=== PATIENT | female | born 1955 | race Caucasian/White ===

== ENCOUNTER 2023-08-12 05:42 | Inpatient (IN) ==
--- NOTE | 2023-07-29 11:26 | Anesthesiology Consultation ---
Date of Service July 29, 2023 Assessment & Plan (1) Encounter for pre-operative examination: Chart Review Chart Review: Acceptable Risk for Surgery (pending PCP clearance 08/08/23) and Patient NOT seen in Pre Admission Testing - Awaiting PCP clearance 08/08/23 (Meredith Nolasco) -Infectious Disease screening: Per PAT nursing assessment on 07/29/23. Patient with nasal congestion/runny nose since 07/21/23. Staying stable. Using Afrin PRN. Will be following up with PCP on 08/08/23. No known infectious disease contacts in past 10 days. No recent travel outside the country. Will be 22 days from symptom onset by DOS on 08/12/23- no additional preop Covid testing or precautions needed pending symptoms resolve by DOS. Will await PCP clearance appt History Surgery Operation Date: 08/12/23 12:25 Proposed Procedures p C5-C6 Anterior Cervical Discectomy Fusion, Spinal Cord Monitoring - John Klein DO Height/Weight Height: 5 ft 7 in Weight: 126.099 kg Allergies Allergy/AdvReac Type Severity Reaction Status Date / Time nickel Allergy Severe red rash Verified 07/29/23 09:44 and itching adhesive Allergy Intermediate REDNESS Verified 07/29/23 09:44 aspartame Allergy Intermediate MIGRAINES, Verified 07/29/23 09:44 G I UPSET Medications Home Medications Medication Instructions Recorded Confirmed Last Taken cetirizine 10 mg tablet 10 mg PO HS 07/29/23 07/29/23 Unknown cholecalciferol (vitamin D3) 125 125 mcg PO QAM 07/29/23 07/29/23 Unknown mcg (5,000 unit) tablet (Vitamin D3) docusate sodium 100 mg capsule 100 mg PO QAM 07/29/23 07/29/23 Unknown (Colace) etodolac 400 mg tablet 400 mg PO BID 07/29/23 07/29/23 Unknown hydrocodone 10 mg-acetaminophen 0.5 tab PO BID 07/29/23 07/29/23 Unknown 325 mg tablet lisinopril 20 1 tab PO QAM 07/29/23 07/29/23 Unknown mg-hydrochlorothiazide 12.5 mg tablet oxymetazoline 0.05 % nasal mist 2 spray intranasal Q12H PRN Nasal 07/29/23 07/29/23 Unknown (Afrin (oxymetazoline)) Congestion Past Medical History Medical History Chronic back pain follows with Pain Management in [place] Hoarseness of voice since 1996 after cervical fusion Hx of renal calculi Hypertension Nausea and vomiting after administration of anesthetic agent Seasonal allergies Unilateral vocal cord paralysis since her last cervical surgery in - experiences sob at times randomly. Past Family History Family History Other No family history of adverse response to anesthesia Past Surgical History Surgical History H/O shoulder replacement Right and Left History of bilateral tubal ligation History of breast biopsy left breast (benign) History of carpal tunnel release right History of colonoscopy History of cystoscopy x2 with kidney stone removal History of lumbar surgery (~2014) History of right hip replacement History of total right knee replacement S/P cervical spinal fusion C6-C7 with bone graft (from hip) Social History Smoking Status: Never smoker Do You Dip or Chew Tobacco: No Hx Alcohol Use: No Hx Substance Use: No substance use type: does not use Lab Results Anesthesia Preop Results Results Anesthesia Widget: WBC 5.65 K/ul (4.8-10.8) 07/25/23 Hgb 13.0 g/dl (12.0-16.0) 07/25/23 Hct 39.1 % (37.0-47.0) 07/25/23 Plt 236 K/uL (130-400) 07/25/23 Na 140 mmol/L (136-145) 07/25/23 K 4.6 mmol/L (3.5-5.1) 07/25/23 Cl 103 mmol/L (98-107) 07/25/23 CO2 31 mmol/L (21-32) 07/25/23 BUN 32 mg/dl (6-23) H 07/25/23 Creat 1.27 mg/dl (0.6-1.2) H 07/25/23 Fasting Glucose 162 mg/dl (70-99) H 07/25/23 PT 10.7 Seconds (9.0-12.0) 07/25/23 PTT 25 Seconds (21-31) 07/25/23 INR 1.0 (0.9-1.1) 07/25/23 Urine Color Yellow 07/25/23 Urine Appearance Clear (Clear) 07/25/23 Urine pH 5.0 (4.5-7.5) 07/25/23 Urine Specific [place] 1.022 (1.000-1.030) 07/25/23 Urine Protein Negative (Negative) 07/25/23 Urine Glucose (UA) Negative (Negative) 07/25/23 Urine Ketones Negative (Negative) 07/25/23 Urine Blood Negative (Negative) 07/25/23 Urine Nitrite Negative (Negative) 07/25/23 Urine Bilirubin Negative (Negative) 07/25/23 Urine Urobilinogen Negative (Negative) 07/25/23 Urine Leukocyte Esterase Negative (Negative) 07/25/23 Blood Type O Negative 07/25/23 Antibody Screen NEGATIVE 07/25/23 Testing Electrocardiogram Date: 07/25/23 Findings: + NSR @ (78bpm) and + no change from (Jan 23, 2014 per cardio ) Nonspecific ST abnormality Chest X-Ray Date: 07/25/23 Findings: + NAD FINDINGS: No pneumothorax. No pleural effusions. The heart is normal in size. No focal lung consolidations to suggest a pneumonia. No evidence for pulmonary edema. There are bilateral total shoulder arthroplasties. Metallic density overlying the cervical spine may represent a necklace or hair clip. There are bilateral total shoulder arthroplasties. No acute fractures identified.
[2023-08-12] MEDS: ACETAMINOPHEN 500 MG TAB PO SCH (06:21)
[2023-08-12] MEDS: CeleBREX 200 MG CAP PO SCH (06:21)
[2023-08-12] MEDS: GABAPENTIN 300 MG CAP PO SCH (06:21)
[2023-08-12] MEDS: LR 60ML/HR IV SCH (06:22)
[2023-08-12] MEDS: LR 15ML/HR IV SCH (06:22)
[2023-08-12] MEDS ORDERED: PROMETHAZINE HCL 6.25 MG in SODIUM CHLORIDE 0.9% 50 ML IV PRN (06:43)
[2023-08-12] MEDS ORDERED: ONDANSETRON INJ 2 MG/ML 2 ML VIAL IV PRN ×2 (06:43→11:11)
[2023-08-12] MEDS ORDERED: ATROPINE SULFATE 0.1 MG/ML 10ML SYR IV PRN (06:43)
[2023-08-12] MEDS ORDERED: ePHEDrine sulfate 50 MG/ML AMP IV PRN (06:43)
[2023-08-12] MEDS ORDERED: ONDANSETRON INJ 2 MG/ML 2 ML VIAL ONE (07:02)
[2023-08-12] MEDS ORDERED: fentaNYL citrate PF 100 MCG/2 ML VIAL ONE (07:02)
[2023-08-12] MEDS ORDERED: MIDAZOLAM HCL 1 MG/ML 2ML VIAL ONE (07:02)
[2023-08-12] MEDS ORDERED: PROPOFOL IV EMULSION 10 MG/ML 20 ML VIAL IV ONE (07:02)
[2023-08-12] MEDS ORDERED: ROCURONIUM BROMIDE 10 MG/ML 5 ML VIAL IV ONE ×2 (07:02→08:28)
[2023-08-12] MEDS ORDERED: SUCCINYLCHOLINE 100MG/5ML SYR IV ONE (07:02)
[2023-08-12] MEDS ORDERED: SUGAMMADEX SODIUM 200 MG/2 ML VIAL IV ONE (07:03)
[2023-08-12] MEDS ORDERED: LIDOCAINE 2% 2 ML VIAL/AMP(20MG/ML) INFIL ONE (07:10)
[2023-08-12] MEDS ORDERED: ACETAMINOPHEN 1000 MG/100 ML IV IV ONE (07:11)
[2023-08-12] MEDS ORDERED: PROPOFOL IV EMULSION 10 MG/ML 100 ML VIAL IV ONE (07:12)
[2023-08-12] MEDS: SCOPOLAMINE 1 MG TDSY TD ONE ×2 (07:16)
--- NOTE | 2023-08-12 07:34 | History & Physical Bridge Note ---
Date of Service August 12, 2023 History & Physical Bridge Note I have examined the patient, reviewed the History & Physical and in the interval since the performance of the History & Physical I have noted the following changes of clinical significance: no changes noted
--- NOTE | 2023-08-12 07:35 | History & Physical Report ---
Date of Service August 12, 2023 Assessment & Plan (1) Herniation of cervical intervertebral disc with radiculopathy: Plan: Anterior cervical discectomy and fusion C5-C6 History of Present Illness Chief Complaint: Neck and arm pain Primary Care Provider: LATOYA Keyes This is a 68-year-old female who presents with chronic cyst on neck and arm pain after failing course of nonoperative care is here for surgical invention. Allergies Allergy/AdvReac Type Severity Reaction Status Date / Time nickel Allergy Severe red rash Verified 08/12/23 06:04 and itching adhesive Allergy Intermediate REDNESS Verified 08/12/23 06:04 aspartame Allergy Intermediate MIGRAINES, Verified 08/12/23 06:04 G I UPSET Home Medications Medication Instructions Recorded Confirmed Type cetirizine 10 mg tablet 10 mg PO HS 07/29/23 08/12/23 History cholecalciferol (vitamin D3) 125 125 mcg PO QAM 07/29/23 08/12/23 History mcg (5,000 unit) tablet (Vitamin D3) docusate sodium 100 mg capsule 100 mg PO QAM 07/29/23 08/12/23 History (Colace) etodolac 400 mg tablet 400 mg PO BID 07/29/23 08/12/23 History hydrocodone 10 mg-acetaminophen 0.5 tab PO BID 07/29/23 08/12/23 History 325 mg tablet lisinopril 20 1 tab PO QAM 07/29/23 08/12/23 History mg-hydrochlorothiazide 12.5 mg tablet oxymetazoline 0.05 % nasal mist 2 spray intranasal Q12H PRN Nasal 07/29/23 08/12/23 History (Afrin (oxymetazoline)) Congestion Past Med/Surg History Medical History Chronic back pain follows with Pain Management in [place] Hoarseness of voice since 1996 after cervical fusion Hx of renal calculi Hypertension Nausea and vomiting after administration of anesthetic agent Seasonal allergies Unilateral vocal cord paralysis since her last cervical surgery in - experiences sob at times randomly. Surgical History H/O shoulder replacement Right and Left History of bilateral tubal ligation History of breast biopsy left breast (benign) History of carpal tunnel release right History of colonoscopy History of cystoscopy x2 with kidney stone removal History of lumbar surgery (~2014) History of right hip replacement History of total right knee replacement S/P cervical spinal fusion C6-C7 with bone graft (from hip) Family History Other No family history of adverse response to anesthesia Social History Smoking Status: Never smoker Second Hand Exposure: No; Do You Dip or Chew Tobacco: No; Tobacco Cessation Education Requested by Patient: No Hx Alcohol Use: No Hx Substance Use: No Preferred Language: Korean Communication Ability: Effective Channel Partners Required: No Beliefs That Will Affect Care: None Current Living Situation: Spouse Other Information That Helps Us Care for You: No Feels Safe at Home: Yes Safety Concerns: Feels Safe At This Time Assistive Devices: None Physical Exam Physical Exam: Patient is alert and oriented Heart regular in rhythm Lungs clear Results & Data Results & Data Vital Signs (Past 12 Hours) Vital Signs Temp Pulse Resp BP Pulse Ox O2 Del Method 08/12/23 06:09 36.6 C 72 20 108/91 93 Room Air
[2023-08-12] MEDS: ceFAZolin 330 MG/ML 1 GM VIAL ONE (08:30)
[2023-08-12] MEDS: ceFAZolin 3000MG 3,000 MG/72.5 ML BAG IV SCH (08:30)
[2023-08-12] MEDS: FLOSEAL HEMOSTATIC MATRIX 10ML TOP ONE (08:31)
--- NOTE | 2023-08-12 09:24 | Operative Report ---
Post Operative Report Pre & Post Diagnosis Operation Date: 08/12/23 07:45 Pre-Op Diagnosis: Cervical spinal stenosis with radiculopathy Morbid obesity Post-Op Diagnosis: Same I identified the patient and participated in the time-out.: Yes Procedure Operation Date: 08/12/23 07:45 Actual Procedures #1 anterior cervical discectomy with bilateral foraminotomies C5-C6. #2 anterior cervical arthrodesis C5-C6. #3 placement of coalition 8 mm interbody construct with I factor. Surgeon John Klein, Toolroom Clerk Latha Chaves Estimated Blood Loss 10 Findings See Below The patient is 5 foot 7 weighing over 127 kg with a BMI in excess of 44. Patient's body was to contribute to significant technical difficulty with positioning exposure and the procedure itself at least 50% increased operative time. Specimens None Indications 68-year-old female who presents with cervical radiculopathy. Obtain extensive course of nonoperative care is here for surgical invention. Description of Procedure Patient was met with identified informed consent obtained. 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 All bony promises well- padded eyes inspected to ensure no external precipice monitor at this point the anterior cervical spine was prepped and draped in a sterile fashion. The assistance of fluoroscopy identified the C5-C6 disc base and a transverse inci doe was placed on the right anterior aspect the cervical spine overlying the region. Blunt dissection with assistance of bipolar cautery to form down to and exposing the anterior cervical spine at C5-C6. Self-retaining retractors placed. Informed complete discectomy out to the uncovertebral joints bilaterally. [place] distracting pins utilized to assist in visualization. Removed all posterior annular fibers longitudinal ligament bilateral foraminotomies were performed. Endplates were to subcortical bleeding bone and a 8 mm coalition cage filled with I factor tapped in position and screwed into place with fluoroscopic visualization. The incision was then copiously irrigated explored to ensure no damage to surrounding structures remaining bleeding. 10 round DONITA drain inserted. The incision was then closed with 2 Vicryl in the fascia and 4 Monocryl for final closure. Steri-Strips sterile dressings placed. Patient waken taken to PACU in stable condition. Please note spinal cord monitoring visualized at the procedure no changes noted. Lastly Latha Chaves is present at the entire surgery Patient positioning complex portion of the surgery and possible closure I attest to the content of the Intraoperative Record and any orders documented therein. Any exceptions are noted below.
--- NOTE | 2023-08-12 09:43 | Fluoroscopy Report ---
FL cervical 2-3V CLINICAL HISTORY: ACDF C5-C6 COMPARISON STUDY: None. FLUOROSCOPY TIME: 21 seconds FLUOROSCOPY IMAGES: 2 Ka,r: 6.3 mGy FINDINGS: Anterior cervical discectomy and fusion at lower cervical spine. The exact level is difficu lt to identify on the spot images but is likely at the C5-C6 level. The hardware appears intact. Part ially visualized endotracheal tube. IMPRESSION: Fluoroscopic assistance as above. ACT 112: Negative or not required by law. Electronically signed by: Jc Abraham M.D. 08/12/2023 9:42 AM
[2023-08-12] MEDS: fentaNYL citrate PF 100 MCG/2 ML VIAL IV PRN (09:45)
[2023-08-12] MEDS: HYDROmorphone INJ 1 MG/ML SYRINGE IV PRN (10:15)
[2023-08-12] MEDS ORDERED: traMADol HCL 50 MG TABLET PO PRN (11:11)
[2023-08-12] MEDS ORDERED: ACETAMINOPHEN 1,000 MG/100 ML VIAL IV PRN (11:11)
[2023-08-12] MEDS ORDERED: DO NOT ADMINISTER PNEUMOCOCCAL VACCINE PRN (11:11)
[2023-08-12] MEDS ORDERED: diphenhydrAMINE Capsule 25 MG CAP PO PRN (11:11)
[2023-08-12] MEDS ORDERED: PROMETHAZINE HCL 12.5 MG in SODIUM CHLORIDE 0.9% 50 ML IV PRN (11:11)
[2023-08-12] MEDS ORDERED: NALOXONE HCL 0.4 MG/1 ML VIAL/CARP IV PRN (11:11)
[2023-08-12] MEDS ORDERED: LORazepam 0.5 MG in SYRINGE 0.25 ML IV PRN (11:11)
[2023-08-12] MEDS ORDERED: RACEPINEPHRINE 2.25% NEBU SOLN 0.5 ML VIAL INH PRN (11:11)
[2023-08-12] MEDS ORDERED: ONDANSETRON 4 MG OD TAB PO PRN (11:11)
[2023-08-12] MEDS ORDERED: HYDROmorphone INJ 1 MG/ML SYRINGE IV PRN (11:11)
[2023-08-12] MEDS ORDERED: hydrOXYzine HCl 25 MG TAB PO PRN (11:11)
[2023-08-12] MEDS ORDERED: MAGNESIUM HYDROXIDE SUSP 30 ML UDC PO PRN (11:11)
[2023-08-12] MEDS ORDERED: SOD PHOSPHATE/SOD BIPHOSPHATE ENEMA 132 ML BTL PR PRN (11:11)
[2023-08-12] MEDS ORDERED: ACETAMINOPHEN 500 MG TAB PO PRN (11:11)
[2023-08-12] MEDS ORDERED: HYDROmorphone INJ 0.5 MG/0.5 ML SYR IV PRN (11:11)
[2023-08-12] MEDS ORDERED: DO NOT ADMINISTER FLU VACCINE PRN (11:11)
[2023-08-12] MEDS ORDERED: LORazepam 0.5 MG TAB PO PRN (11:11)
[2023-08-12] MEDS ORDERED: bisacodyL 10 MG SUPP PR PRN (11:11)
[2023-08-12] MEDS ORDERED: METOCLOPRAMIDE HCL INJ 5 MG/ML 2 ML VIAL IV PRN (11:11)
[2023-08-12] MEDS ORDERED: FAMOTIDINE 20 MG TAB PO PRN (11:11)
[2023-08-12] MEDS ORDERED: dexAMETHasone 8 MG in SYRINGE 0 ML IV PRN (11:11)
[2023-08-12] MEDS ORDERED: ALUMINUM/MAGNESIUM SUSP 30 ML UDC PO PRN (11:11)
[2023-08-12] MEDS ORDERED: OXYMETAZOLINE 0.05% 30 ML BTL PRN (11:22)
[2023-08-12] MEDS: LACTATED RINGER'S 1,000 ML IV SCH (11:41)
--- NOTE | 2023-08-12 12:11 | Hospitalist Consultation ---
Date of Consultation August 12, 2023 Assessment & Plan (1) Herniation of cervical intervertebral disc with radiculopathy: This is a 68 y/o female with cervical stenosis, hypertension, seasonal allergies, vocal cord paralysis from prior ACDF, and other history as outlined who underwent C5-C6 ACDF today by Dr. Klein. We have been consulted for post- operative medical management. Currently, pt has no specific complaints and BP is stable. - Pain control, activity, DVT prophylaxis per primary service - Encourage OOB as tolerated, incentive spirometry - Labs in the AM - EBL 10 ml per op note (2) Hypertension: Chronic, stable Continue outpatient meds (3) Seasonal allergies: Chronic, stable Continue outpatient regimen (4) Unilateral vocal cord paralysis: Chronic, appears stable Plan Pt seen and reviewed with collaborating physician, Dr. Berry. Plan of care discussed and as outlined above. Thank you for this consultation. We will continue to follow the patient with you. A member of the [facility] Hospitalist team is available 26/11 via [employer]. Please don't hesitate to reach out with questions. Saundra Pina PA-C Supervising Physician Co-Signing Physician Notes Patient was seen and examined independently at bedside. Chart reviewed. Case discussed with Sherri Pina PA-C and agree with the documentation above. In summary, this is a 68 year old female with cervical stenosis with radiculopathy who underwent ACDF by Dr Klein today. Post operatively patient has remained stable. DVT ppx, pain management, activities, and disposition per primary team. Chronic medical conditions stable. On exam- General: Lying comfortably in bed, not in distress Chest: Clear breath sounds bilaterally, no wheezes or crackles CVS: Regular rate and rhythm, normal heart sounds, no murmur Abdomen: Soft, non tender, not distended, normal bowel sounds Neuro: Awake, alert, oriented, non focal Extremities: No edema Incision site with surgical dressing and DONITA drain Rest as per the note above. History of Present Illness Reason for Consultation: Post-op medical management Requesting Physician: Dr. John Klein Attending Physician: oJhn Klein, DO History of Present Illness This is a 68 y/o female with cervical stenosis, hypertension, seasonal allergies, vocal cord paralysis from prior ACDF, and other history as outlined who underwent C5-C6 ACDF today by Dr. Klein. Prior to surgery, she reports neck pain with numbness, tingling, and weakness in her right arm. Currently, she reports feeling well without significant neck pain. She is using her right hand and arm without difficulty. Reports that the numbness and tingling are improved post-operatively. She had vocal cord paralysis after prior ACDF with partial recovery of vocal function. No vocal concerns at present after this procedure. She is tolerating clear liquids without difficulty. Denies dysphagia, chest p ain, palpitations, dyspnea, N/V. Allergies Allergy/AdvReac Type Severity Reaction Status Date / Time nickel Allergy Severe red rash Verified 08/12/23 06:04 and itching adhesive Allergy Intermediate REDNESS Verified 08/12/23 06:04 aspartame Allergy Intermediate MIGRAINES, Verified 08/12/23 06:04 G I UPSET Home Medications Medication Instructions Recorded Confirmed Type cetirizine 10 mg tablet 10 mg PO HS 07/29/23 08/12/23 History cholecalciferol (vitamin D3) 125 125 mcg PO QAM 07/29/23 08/12/23 History mcg (5,000 unit) tablet (Vitamin D3) docusate sodium 100 mg capsule 100 mg PO QAM 07/29/23 08/12/23 History (Colace) etodolac 400 mg tablet 400 mg PO BID 07/29/23 08/12/23 History hydrocodone 10 mg-acetaminophen 0.5 tab PO BID 07/29/23 08/12/23 History 325 mg tablet lisinopril 20 1 tab PO QAM 07/29/23 08/12/23 History mg-hydrochlorothiazide 12.5 mg tablet oxymetazoline 0.05 % nasal mist 2 spray intranasal Q12H PRN Nasal 07/29/23 08/12/23 History (Afrin (oxymetazoline)) Congestion Patient History Medical History (Updated 08/12/23 @ 12:54 by Nicole Pina PA-C) Unilateral vocal cord paralysis since her last cervical surgery in - experiences sob at times randomly. Seasonal allergies Hypertension Nausea and vomiting after administration of anesthetic agent Hoarseness of voice since 1996 after cervical fusion Chronic back pain follows with Pain Management in [place] Hx of renal calculi Surgical History History of colonoscopy History of carpal tunnel release right H/O shoulder replacement Right and Left History of right hip replacement History of total right knee replacement History of lumbar surgery (~2014) S/P cervical spinal fusion C6-C7 with bone graft (from hip) History of breast biopsy left breast (benign) History of bilateral tubal ligation History of cystoscopy x2 with kidney stone removal Family History Other No family history of adverse response to anesthesia Social History Smoking Status: Never smoker Second Hand Exposure: No; Do You Dip or Chew Tobacco: No; Tobacco Cessation Education Requested by Patient: No Hx Alcohol Use: No Hx Substance Use: No Preferred Language: Swedish Communication Ability: Effective Knowledge Management Consultant Required: No Beliefs That Will Affect Care: None Current Living Situation: Spouse Other Information That Helps Us Care for You: No Feels Safe at Home: Yes Safety Concerns: Feels Safe At This Time Assistive Devices: None Review of Systems Review of Systems: All systems reviewed & are unremarkable except as noted in HPI & below Constitutional: no fever and no chills Eyes: no diplopia Ear, Nose, Mouth, Throat: no sore throat and no dysphagia Respiratory: no cough and no dyspnea Cardiovascular: no chest pain and no palpitations Gastrointestinal: no abdominal pain, no nausea and no vomiting Genitourinary: no dysuria Musculoskeletal: as per Subjective / HPI Integumentary: no rash Neurologic: as per Subjective / HPI Physical Exam Physical Exam: General: awake, alert, NAD HEENT: no scleral icterus, moist oral mucosa Neck: cervical collar in place, drain in place with scant sanguinous drainage Heart: RRR Lungs: CTA bilaterally Abdomen: soft, NT, +BS 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 and equal bilaterally, distal pulses intact and equal Skin: warm, dry, no jaundice Neurologic: moving all extremities, no focal deficits, no confusion, no dysarthria Results & Data Results & Data Vital Signs (Past 12 Hours) Vital Signs Temp Pulse Pulse Resp BP Pulse Ox O2 Del Method 08/12/23 11:43 36.7 C 81 18 144/75 H 97 Nasal Cannula 08/12/23 11:35 80 18 95 Nasal Cannula 08/12/23 11:11 Nasal Cannula 08/12/23 11:11 36.3 C L 82 18 110/65 96 Nasal Cannula 08/12/23 10:55 84 16 150/70 H 97 Nasal Cannula 08/12/23 10:45 86 18 127/79 95 Nasal Cannula 08/12/23 10:35 36.5 C 72 20 142/69 H 94 Nasal Cannula 08/12/23 10:25 70 18 141/81 H 95 Nasal Cannula 08/12/23 10:15 68 16 128/73 94 Oxymask 08/12/23 10:05 86 18 136/76 95 Oxymask 08/12/23 09:55 87 24 141/81 H 97 Oxymask 08/12/23 09:45 89 20 141/78 H 95 Oxymask 08/12/23 09:35 36.5 C 95 H 12 159/80 H 93 Oxymask 08/12/23 06:09 36.6 C 72 20 108/91 93 Room Air O2 Flow Rate 08/12/23 11:43 3 08/12/23 11:35 2 08/12/23 11:11 3 08/12/23 11:11 3 08/12/23 10:55 3 08/12/23 10:45 3 08/12/23 10:35 3 08/12/23 10:25 3 08/12/23 10:15 4 08/12/23 10:05 4 08/12/23 09:55 4 08/12/23 09:45 4 08/12/23 09:35 6 08/12/23 06:09 (2) Hypertension Hypertension type: unspecified Qualified Code(s): I10 - Essential (primary) hypertension
--- NOTE | 2023-08-12 13:06 | Anesthesiology Progress Note ---
Date of Service August 12, 2023 Anesthesia Post Procedure Vital Signs Vital Signs: Temp Pulse Pulse Resp BP Pulse Ox O2 Del Method 08/12/23 12:11 82 16 106/61 97 Nasal Cannula 08/12/23 11:43 36.7 C 81 18 144/75 H 97 Nasal Cannula 08/12/23 11:35 80 18 95 Nasal Cannula 08/12/23 11:11 Nasal Cannula 08/12/23 11:11 36.3 C L 82 18 110/65 96 Nasal Cannula 08/12/23 10:55 84 16 150/70 H 97 Nasal Cannula 08/12/23 10:45 86 18 127/79 95 Nasal Cannula 08/12/23 10:35 36.5 C 72 20 142/69 H 94 Nasal Cannula 08/12/23 10:25 70 18 141/81 H 95 Nasal Cannula 08/12/23 10:15 68 16 128/73 94 Oxymask 08/12/23 10:05 86 18 136/76 95 Oxymask 08/12/23 09:55 87 24 141/81 H 97 Oxymask 08/12/23 09:45 89 20 141/78 H 95 Oxymask 08/12/23 09:35 36.5 C 95 H 12 159/80 H 93 Oxymask 08/12/23 06:09 36.6 C 72 20 108/91 93 Room Air O2 Flow Rate 08/12/23 12:11 3 08/12/23 11:43 3 08/12/23 11:35 2 08/12/23 11:11 3 08/12/23 11:11 3 08/12/23 10:55 3 08/12/23 10:45 3 08/12/23 10:35 3 08/12/23 10:25 3 08/12/23 10:15 4 08/12/23 10:05 4 08/12/23 09:55 4 08/12/23 09:45 4 08/12/23 09:35 6 08/12/23 06:09 Pain Intensity Neck: Pain Intensity: 1 Transfer of Care Handoff Completed per policy Notes Mental Status: alert / awake / arousable Patient Amnestic to Procedure: Yes Nausea / Vomiting: adequately controlled Pain: adequately controlled Airway Patency, RR, SpO2: stable & adequate BP & HR: stable & adequate Hydration State: stable & adequate Anesthetic Complications: no major complications apparent and Pt Satisfied with anesthetic care
[2023-08-12] MEDS: oxyCODONE HCL IR 5 MG TAB (IMMEDIATE RELEASE) PO PRN (14:53)
[2023-08-12] MEDS: CHECK SCOPOLAMINE PATCH PLACEMENT SCH ×2 (15:42→15:43)
[2023-08-12] MEDS: ceFAZolin 2000MG 2,000 MG/15 ML SYR IV SCH (15:43)
[2023-08-12] MEDS: CETIRIZINE HCL 10 MG TABLET PO SCH (20:04)
[2023-08-12] MEDS: DOCUSATE SODIUM/SENNA 50/8.6MG TAB PO SCH (20:05)
[2023-08-13] MEDS: POLYETHYLENE (MIRALAX) 17 GM PACK PO SCH (04:54)
[2023-08-13 06:15] LABS: Basophils # (auto) 0.02 K/uL (0.00-0.20); Basophils % (auto) 0.2 %; Eosinophils # (auto) 0.06 K/uL (0.00-0.50); Eosinophils % (auto) 0.7 %; Hematocrit (blood only) 35.2 % (37.0-47.0); Hemoglobin 11.5 g/dl (12.0-16.0); Immature Granulocytes # (auto) 0.03 K/uL (0.01-0.20); Immature Granulocytes % (auto) 0.4 %; Lymphocytes # (auto) 1.47 K/uL (1.20-3.40); Lymphocytes % (auto) 17.5 %; Mean Corpuscular Hemoglobin 31.9 pg (25.0-34.0); Mean Corpuscular Hgb Conc 32.7 g/dL (32.0-36.0); Mean Corpuscular Volume 97.5 fL (80.0-100.0); Mean Platelet Volume 9.6 fL (9.4-12.4); Monocytes # (auto) 0.68 K/uL (0.11-0.59); Monocytes % (auto) 8.1 %; Neutrophils # (auto) 6.12 K/uL (1.40-6.50); Neutrophils % (auto) 73.1 %; Platelet Count 216 K/uL (130-400); RDW Coefficient of Variation 12.6 % (11.5-14.5); RDW Standard Deviation 45.1 fL (36.4-46.3); Red Blood Count 3.61 M/uL (4.20-5.40); White Blood Count 8.38 K/ul (4.8-10.8)
[2023-08-13 06:32] LABS: Anion Gap 6 (3-11); BUN Creatinine Ratio 22.6 (10-20); Blood Urea Nitrogen 24 mg/dl (6-23); Calcium 8.5 mg/dl (8.6-10.3); Carbon Dioxide 28 mmol/L (21-32); Chloride 101 mmol/L (98-107); Creatinine Clr Calc Pharmacy 69.6 ml/min; Est GFR (Non-African American) 53.5 ml/min; Glucose 118 mg/dl (70-99(Fasting)); Sodium 135 mmol/L (136-145)
[2023-08-13] MEDS: dexAMETHasone 6 MG in SYRINGE 0 ML IV SCH (08:25)
[2023-08-13] MEDS: LISINOPRIL/HCTZ 20/12.5MG 1 TAB TAB PO SCH (08:25)
[2023-08-13] MEDS: CHOLECALCIFEROL 125 MCG (5,000 UNITS) TAB PO SCH (08:25)
[2023-08-13] MEDS: DOCUSATE SODIUM 100 MG CAP PO SCH (08:25)
--- NOTE | 2023-08-13 09:38 | Discharge Summary ---
Date of Service August 13, 2023 Admission HPI Per Admitting Provider This is a 68-year-old female who presents with chronic cyst on neck and arm pain after failing course of nonoperative care is here for surgical invention. Principal Diagnosis Cervical discrimination with radiculopathy Discharge Data Allergies Allergy/AdvReac Type Severity Reaction Status Date / Time nickel Allergy Severe red rash Verified 08/12/23 06:04 and itching adhesive Allergy Intermediate REDNESS Verified 08/12/23 06:04 aspartame Allergy Intermediate MIGRAINES, Verified 08/12/23 06:04 G I UPSET Consultations 08/12/23 11:11 Consult Hospitalist Routine Procedures Performed Operation Date: 08/12/23 07:45 Actual Procedures p C5-C6 Anterior Cervical Discectomy Fusion, Spinal Cord Monitoring(Not Applicab le) - John Klein DO Ordered Studies 08/12/23 07:45 FL cervical 2-3V Routine Hospital Course (1) Herniation of cervical intervertebral disc with radiculopathy: Patient underwent anterior cervical discectomy and fusion tolerated as well as taken orthopedic for postoperative. Postop day #1 she was swallowing well. Pain markedly improved. DONITA drain decreasing appropriate. Extra strength testing. Simply discharged home. Discharge orders instructions from chart for further review. Total Time Total Time Spent Total Time Spent (In Minutes): 20 minutes Discharge Plan Discharge Items Patient Disposition: Home - Self-Care Reason For Visit: Cervical Spine Pain, Cervical Myelopathy Discharge Diagnosis: Cervical spinal stenosis with radiculopathy Activity: As commented below Non-emergency contact: Primary Care Provider Call non-emergency contact if: you have any medication questions Follow-up/Referrals: Meredith Oneill CRNP [Primary Care Provider] - Diet: Regular Addtl Attending Provider Instructions: ACTIVITY RECOMMENDATIONS: SELF CARE INSTRUCTIONS AFTER CERVICAL FUSIONS 1. No smoking. Smoking drastically decreases the chance of a solid fusion. 2. No bending, lifting more than 5 pounds, or twisting (roll like a log when turning in bed). 3. You may shower 3 days after surgery. Thoroughly dry wound. Do not soak in the tub. 4. Cervical collar: Must be worn at all times including sleeping. You may remove the brace only to bath, eat and if you are sitting in a recliner. 5. Please walk as much as you can for exercise. Gradually increase the distance that you walk as your endurance increases. SPECIAL CARE INSTRUCTIONS: VERY IMPORTANT TO READ AND REVIEW A. Do not take any anti-inflammatory medications (i.e. Indocin, Advil, Aspirin, Naprosyn, Aleve, Motrin, etc.) as these may inhibit the chance of a solid fusion. Tylenol is okay to take. B. Your surgical incision has been closed with a cosmetic suture under the skin that will dissolve in about 6 weeks. In 14 days, you can use a pair of clean scissors and cut the suture that is left outside of the skin at the ends of your incision. C. Complications are uncommon, but please contact us if you have any signs or symptoms of: 1. wound infection (fever higher than 102.5 degrees F, redness, separation of wound, drainage, or increasing pain from the incision) 2. blood clots in legs (pain, swelling, redness and warmth in legs) 3. urinary tract infection (fever higher than 102.5 degrees, burning upon urination or increased frequency of urination) 4. nerve problems (inability to walk on your toes or heels, numbness, loss of bowel or bladder control) 5. any other symptoms that concern you. D. Please call the office at if you have any concerns or questions about your operation or recovery. MANAGING PAIN AFTER SPINAL SURGERY 1. Narcotic medication is intended for short-term use and will be provided for surgical pain. Surgical pain usually lasts for a period of 4-6 weeks. Narcotic medication includes Percocet, Vicodin, Darvocet, Tylenol #3 or Lortab. 2. Longer-term pain is more appropriately treated with non-narcotic medication such as Tylenol ES. 3. Muscle spasm is not appropriately treated with narcotics. Muscle relaxers such as Soma, Flexeril or Skelaxin can be used along with Tylenol ES. 4. Remember that we all live with some "aches and pains". This is not unusual or uncommon after an injury or as we get older. 5. We will provide appropriate medication within the normal guidelines of their prescribed use. We will also be very cautious and aware of potential abuse and extended duration of patients' medication needs. 6. Please allow 2-3 days to process refills. Prescriptions will not be mailed but must be picked up at the office. FOLLOW UP VISIT: Keep your scheduled follow-up appointment. Any questions, please call the office at . Pending Studies at Discharge: No Stand-Alone Forms: [facility], Smoking Cessation Medications and DC Order Prescriptions: New oxycodone 5 mg tablet 5 mg PO Q6H PRN (Reason: pain) Qty: 20 0RF Continued cetirizine 10 mg Tablet 10 mg PO HS lisinopril-hydrochlorothiazide 20-12.5 mg Tablet 1 tab PO QAM hydrocodone-acetaminophen 10-325 mg Tablet 0.5 tab PO BID docusate sodium [Colace] 100 mg Capsule 100 mg PO QAM cholecalciferol (vitamin D3) [Vitamin D3] 125 mcg (5,000 unit) Tablet 125 mcg PO QAM Afrin (oxymetazoline) 0.05 % Mist 2 spray INTRANASAL Q12H PRN (Reason: Nasal Congestion) Discontinued etodolac 400 mg Tablet 400 mg PO BID Discharge Orders: Discharge Order (Routine); Ordered 08/13/23 Ordered By: John Klein Admission Data Admit Date/Time: 08/12/23 09:29 Attending Provider: Maikel Alanis Admit Provider: John Klein Primary Care Provider: Meredith Oneill Other Providers: Melo Berry
== END 2023-08-13 13:42 | disposition home or self-care (01) | DRG 472 ==
LOC: ASU 05:42 → 3E 09:29 → SUATTDRO 09:29